=== PATIENT | female | born 1950 | race Caucasian/White ===

== ENCOUNTER 2020-07-09 18:34 | Emergency (ER) | payer OTHER | END 2020-07-09 19:01 | disposition home or self-care (01) | LOC: JVIRT 18:34 | DX: Z11.59 Encounter for screening for other viral diseases (principal) | CPT/HCPCS: C9803; Q3014-GT; U0003 ==

== ENCOUNTER 2020-09-25 16:54 | Emergency (ER) | payer OTHER | END 2020-09-25 17:42 | disposition home or self-care (01) | LOC: JVIRT 16:54 | DX: Z20.822 Contact with and (suspected) exposure to COVID-19 (principal) | CPT/HCPCS: C9803; G2251-GT; Q3014-GT; U0003 ==

== ENCOUNTER 2020-11-20 12:08 | Emergency (ER) | payer OTHER ==
[2020-11-21 10:07] LABS: SARS-CoV-2 NAA Not Detected (Not Detected)
== END 2020-11-20 12:28 | disposition home or self-care (01) ==
LOC: JVIRT 12:08
DX: Z11.52 Encounter for screening for COVID-19 (principal)
CPT/HCPCS: C9803; G2251-GT; U0003; U0005

== ENCOUNTER 2021-01-23 12:16 | Emergency (ER) | payer OTHER ==
[2021-01-24 10:10] LABS: SARS-CoV-2 NAA Not Detected (Not Detected)
== END 2021-01-23 14:35 | disposition home or self-care (01) ==
LOC: JVIRT 12:16
DX: Z20.822 Contact with and (suspected) exposure to COVID-19 (principal)
CPT/HCPCS: C9803; Q3014-GT; U0003; U0005

== ENCOUNTER 2021-07-13 10:43 | Emergency (ER) | payer OTHER ==
[2021-07-13 10:59] VITALS: BP 110/65; PULSE 86; TEMP 98.9; BMI 24.7
== END 2021-07-13 11:14 | disposition home or self-care (01) ==
LOC: FER 10:43
DX: S80.811A Abrasion, right lower leg, initial encounter (principal); S80.812A Abrasion, left lower leg, initial encounter; W19.XXXA Unspecified fall, initial encounter
CPT/HCPCS: 99282-25

== ENCOUNTER 2021-07-13 17:28 | Emergency (ER) | payer OTHER ==
[2021-07-13 17:43] VITALS: BP 145/89; PULSE 79; TEMP 97.8; BMI 24.6
[2021-07-13] MEDS ORDERED: NAPROXEN 500 MG TABLET PO ONE (17:53)
[2021-07-13] MEDS ORDERED: NAPROXEN 500 MG TABLET ONE (18:00)
== END 2021-07-13 18:59 | disposition home or self-care (01) ==
LOC: FER 17:28
DX: M79.642 Pain in left hand (principal); W10.8XXA Fall (on) (from) other stairs and steps, initial encounter
CPT/HCPCS: 73110-TC-LT-FY; 73130-TC-LT-FY; 99283-25

== ENCOUNTER → 2021-08-08 | Day surgery (SDC) | payer OTHER ==
[2021-08-06 13:00] VITALS: BMI 21.9
[~2021-08-08] MED LIST: BSS (NA/CA/MG/K) BALANCED SALT SOLUTION OPHTH SOLN 15 ML BOTTLE ONE; CARBACHOL 0.01% INTRA-OCULAR 1.5 ML VIAL ONE; LIDOCAINE 1% P/F 10 MG/ML VIAL ONE; NEO/POLYMYX B SULF/DEXAMETH OPHTHALMIC 5ML BOTTLE ONE; TETRACAINE 0.5% OPHTH SOLN 2 ML BOTTLE ONE
== END | disposition home or self-care (01) ==
LOC: FASU 07:51
PROVIDERS: ATTEND Ophthalmology
PROC: 08RJ3JZ Replacement of Right Lens with Synthetic Substitute, Percutaneous Approach (ICD-10-PCS; principal; 2021-08-08)
DX: Z53.8 Procedure and treatment not carried out for other reasons (principal); H26.8 Other specified cataract
CPT/HCPCS: C9803; U0003; U0005

== ENCOUNTER 2021-08-29 09:01 | Day surgery (SDC) | payer OTHER ==
[2021-08-22 12:36] VITALS: BMI 21.9
[2021-08-29] MEDS: PHENYLEPHRINE 2.5% OPHTH SOLN 15 ML BOTTLE ONE ×3 (09:45→09:55)
[2021-08-29] MEDS: CIPROFLOXACIN 0.3% EYE DROPS 5 ML BOTTLE ONE ×3 (09:45→09:55)
[2021-08-29] MEDS: CYCLOPENTOLATE 2% OPHTH SOLN 2 ML BOTTLE ONE ×3 (09:45→09:55)
[2021-08-29] MEDS: TROPICAMIDE 1% OPHTH SOLN 15 ML BOTTLE ONE ×3 (09:45→09:55)
[2021-08-29 09:51] VITALS: TEMP 97.6
[2021-08-29] MEDS ORDERED: NEO/POLYMYX B SULF/DEXAMETH OPHTHALMIC 5ML BOTTLE ONE (10:44)
[2021-08-29] MEDS ORDERED: CARBACHOL 0.01% INTRA-OCULAR 1.5 ML VIAL ONE (10:44)
[2021-08-29] MEDS ORDERED: BSS (NA/CA/MG/K) BALANCED SALT SOLUTION OPHTH SOLN 15 ML BOTTLE ONE (10:44)
[2021-08-29] MEDS ORDERED: MIDAZOLAM HCL 2 MG/2 ML SINGLE DOSE VIAL ONE (11:44)
[2021-08-29 12:50] VITALS: BP 137/88; PULSE 65
== END 2021-08-29 12:55 | disposition home or self-care (01) ==
LOC: FASU 09:01
PROVIDERS: ATTEND Ophthalmology
PROC: 08RK3JZ Replacement of Left Lens with Synthetic Substitute, Percutaneous Approach (ICD-10-PCS; principal; 2021-08-29 11:47)
DX: H26.8 Other specified cataract (principal)

== ENCOUNTER 2021-09-12 10:12 | Day surgery (SDC) | payer OTHER ==
[2021-09-06 15:38] VITALS: BMI 21.9
[2021-09-12] MEDS: TROPICAMIDE 1% OPHTH SOLN 15 ML BOTTLE ONE ×3 (10:55→11:05)
[2021-09-12] MEDS: PHENYLEPHRINE 2.5% OPHTH SOLN 15 ML BOTTLE ONE ×3 (10:55→11:05)
[2021-09-12] MEDS: CYCLOPENTOLATE 2% OPHTH SOLN 2 ML BOTTLE ONE ×3 (10:55→11:05)
[2021-09-12] MEDS: CIPROFLOXACIN 0.3% EYE DROPS 5 ML BOTTLE ONE ×3 (10:55→11:05)
[2021-09-12] MEDS ORDERED: MIDAZOLAM HCL 2 MG/2 ML SINGLE DOSE VIAL ONE (12:11)
[2021-09-12 12:40] VITALS: TEMP 97.6
[2021-09-12 13:07] VITALS: BP 119/75; PULSE 74
== END 2021-09-12 13:32 | disposition home or self-care (01) ==
LOC: FASU 10:12
PROVIDERS: ATTEND Ophthalmology
PROC: 08RJ3JZ Replacement of Right Lens with Synthetic Substitute, Percutaneous Approach (ICD-10-PCS; principal; 2021-09-12 12:14)
DX: H26.8 Other specified cataract (principal)